=== PATIENT | female | born 2000 | race Caucasian/White ===

== ENCOUNTER 2022-11-23 18:17 | Emergency (ER) | payer BC, SELFPAY ==
--- NOTE | ~2022-11-23 | CT_ITS ---
EXAMINATION: CTA chest PE protocol DATE: 11/23/2022 22:29 INDICATION: CP, SOB, elevated dimer TECHNIQUE: Computed tomography angiography (CTA) of the chest was performed with 100 mL Omnipaque-350 intravenous contrast timed to evaluate the pulmonary arteries. Coronal maximum intensity projection 3D-reconstructions were created by the technologist. The dose-length product (DLP) was 133.91 mGy-cm. Automated exposure control and iterative reconstruction technique were employed. COMPARISON: None. FINDINGS: Lung parenchyma and airways: Clear. Pleura: Unremarkable. Thoracic inlet, axillae and chest wall: Unremarkable. Thoracic aorta: Normal. Mediastinum: Normal. Heart and pericardium: Normal. Coronary artery calcifications: . Upper abdomen: No significant finding. Bones: No acute osseous finding. Pulmonary arteries: Study quality: Mildly limited by quantum mottle and motion, particularly in the l eft lower lobe, overall diagnostic. No pulmonary emboli detected. IMPRESSION: Mildly motion limited examination, particularly in the left lower lobe, without definite CT evidence of acute pulmonary embolus. No acute process detected in the chest. Reviewed, dictated and finalized at location [facility]
--- NOTE | ~2022-11-23 | XR_ITS ---
EXAMINATION: XR chest 2V Exam Date/Time: 11/23/2022 19:00 PIN INSERTER REGULATOR HISTORY: generalized chest pain off and on for 1 week Comparison: None available. RESULT: Lines, tubes, and devices: None. Lungs and pleura: Clear. Cardiomediastinal silhouette: Normal. Other: No acute osseous or upper abdominal finding. IMPRESSION: No acute cardiopulmonary process. Reviewed, dictated and finalized at location K. INSERTER REGULATOR
[2022-11-23 18:41] VITALS: BP 142/95; PULSE 117; RESP 18; TEMP 37.1; O2SAT 100
--- NOTE | 2022-11-23 18:44 | ECG_ITS ---
Measurements Intervals [place] Rate: 78 P: 76 MD: 127 QRS: 63 QRSD: 73 T: 41 QT: 343 QTc: 391 Interpretive Statements SINUS RHYTHM WITH SINUS ARRHYTHMIA POSSIBLE LEFT ATRIAL ENLARGEMENT BASELINE ARTIFACT- I, III, AVL BORDERLINE ECG NO PREVIOUS ECG AVAILABLE FOR COMPARISON Electronically Signed On 11-24-2022 6:36:32 STAMPING PRESS OPERATOR by Pablo Lentz D.O.
[2022-11-23 20:15] VITALS: BP 134/87; PULSE 106; RESP 16; O2SAT 98
[2022-11-23 20:31] LABS: Basophils Percent Auto 0.2 % (0.2-1.2); Eosinophils Percent Auto 0.4 % (0-4.4); Hemoglobin 14.8 g/dL (12.0-15.0); Immature Granulocyte Absolute 0.03 K/mm3 (0.00-0.031); Immature Granulocyte Percent A 0.3 % (0-0.5); Lymphocytes Absolute Auto 1.76 K/mm3 (0.9-3.2); Lymphocytes Percent Auto 16.7 % (18.3-44.2); Mean Corpuscular HGB Conc 33.6 g/dl (32-36); Mean Corpuscular Hemoglobin 28.8 pg (26-34); Mean Corpuscular Volume 85.8 fl (80-100); Monocytes Absolute Auto 0.5 K/mm3 (0.1-0.6); Monocytes Percent Auto 5.1 % (2.6-8.5); Neutrophils Absolute Auto 8.1 K/mm3 (1.3-6.7); Neutrophils Percent Auto 77.3 % (45.5-73.1); Platelet Count Result 299 k/mm3 (150-375); Red Blood Count 5.13 M/mm3 (4.2-5.4); Red Cell Distribution Width 12.5 % (11.5-14.5); White Blood Count 10.5 K/mm3 (4.5-10.0)
[2022-11-23 20:41] LABS: Alanine Aminotransferase 35 U/L (6-35); Albumin Level 5.4 g/dL (3.5-5.1); Alkaline Phosphatase 62 U/L (38-126); Anion Gap 12 mmol/L (8-16); Aspartate Amino Transferase 35 U/L (14-36); Bilirubin,Total 0.5 mg/dL (0.2-1.3); Blood Urea Nitrogen 13 mg/dL (7-17); Carbon Dioxide 28 mmol/L (22-30); Chloride 100 mmol/L (98-107); Estimated CRCL calculation 94 ml/min; Estimated Glomerular Filt Rate > 60; Glucose 103 mg/dL (65-110); Lipase 74 U/L (23-300); Potassium 4.1 mmol/L (3.4-5.0); Sodium 140 mmol/L (137-145)
[2022-11-23 20:45] LABS: Prothrombin Time 12.8 Seconds (11.1-14.7)
[2022-11-23 20:46] LABS: Partial Thromboplastin Time 25.2 SECONDS (22.3-36.8)
--- NOTE | 2022-11-23 20:47 | ED.CHESTPAIN ---
HPI - Chest Pain General Chief Complaint: Chest Pain <BRUCE Quintanilla Last Filed: 11/24/22 02:58> Stated Complaint: Chest congestion <BRUCE Quintanilla Last Filed: 11/24/22 02:58> Time Seen by Provider: 11/23/22 20:13 <BRUCE Quintanilla Last Filed: 11/24/22 02:58> History of Present Illness HPI narrative: Patient is a 22-year-old female with history of childhood asthma here for evaluation of chest pain over the past 3 weeks. Patient states that her symptoms began and she presented to an urgent care's facility who diagnosed her with flu. Her fevers, cough and congestion have improved but this chest pain has remained. She describes it as a midsternal chest pain that is sharp in nature, possibly worse with deep breaths. Also notes some pain under her bilateral rib cages. She has taken ibuprofen without relief of her symptoms. No leg swelling, history of oral contraceptive use. <BRUCE Quintanilla Last Filed: 11/24/22 02:58> Related Data Allergies/Adverse Reactions: Allergies Allergy/AdvReac Type Severity Reaction Status Date / Time No Known Allergies Allergy Verified 11/23/22 20:05 <Maxine Gay PA-C - Last Filed: 11/24/22 02:58> Review of Systems Review of Systems: Gen.: Denies fevers or chills Eyes: Denies eye pain or visual change ENT: Denies congestion Respiratory: Denies shortness of breath or cough CV: Reports chest pain GI: Denies abdominal pain nausea, emesis or diarrhea denies burning, urgency, frequency or hematuria Musculoskeletal: Denies back pain or muscle pain Neuro: Denies numbness, tingling, weakness or focal weakness Skin: Denies rash Except as documented, all other systems reviewed and negative <BRUCE Quintanilla Last Filed: 11/24/22 02:58> Exam Narrative: APPEARANCE: Well appearing, no pain in distress, well-nourished. Head: Normocephalic and atraumatic. EYES: PERRLA/EOMI, conjunctivae clear NOSE: No nasal drainage EARS: External ear normal in appearance THROAT: Oropharynx is clear. Mucous membranes are moist. NECK: Supple. No adenopathy, no masses. RESPIRATORY: Airway patent, respirations nonlabored. Clear to auscultation bilaterally, no rales, rhonchi, wheezing. CARDIOVASCULAR: Regular rate and rhythm without murmurs, rubs, or gallops. ABDOMINAL: Normoactive bowel sounds. Soft, nontender, nondistended. No rebound tenderness or guarding. MUSCULOSKELETAL: No tenderness to palpation along the thorax. Extremities are warm and well-perfused. Moves all extremities well. No edema. NEURO: Normal speech. No focal neurologic deficits. SKIN: Skin is warm and dry. No rashes. PSYCHIATRIC: Normal affect/mood.. <Maxine Gay PA-C - Last Filed: 11/24/22 02:58> Course MAINTENANCE OF WAY SUPERINTENDENT/PA Physician Supervision This is a was performed by both a physician and an APC. I performed all aspects of the MDM as documented w/ the following additions: Sit pleasant 22-year-old female presenting ED with pleuritic chest pain. She recently had a viral illness. Differential includes pleurisy versus pulmonary embolism. CT PE was obtained which was negative for PE. Patient's vital signs and pain improved without intervention. Patient is comfortable being discharged at this time. All questions answered. Patient in agreement w/ disposition. <Cristian Lovelace MD - Last Filed: 11/25/22 03:20> Vital Signs Vital signs: Vital Signs Temperature 98.7 F 11/23/22 18:41 Pulse Rate 117 H 11/23/22 18:41 Respiratory Rate 18 11/23/22 18:41 Blood Pressure 142/95 H 11/23/22 18:41 Pulse Oximetry 100 11/23/22 18:41 Temperature 98.7 F 11/23/22 18:41 Pulse Rate 84 11/23/22 23:33 Respiratory Rate 18 11/23/22 23:33 Blood Pressure 132/86 11/23/22 23:33 Pulse Oximetry 97 11/23/22 23:33 Oxygen Delivery Room Air 11/23/22 20:11 <Maxine Gay PA-C - Last Filed: 11/24/22 02:58>
[2022-11-23 20:53] LABS: Troponin I < 0.012 ng/mL (0.000-0.034)
[2022-11-23 23:33] VITALS: BP 132/86; PULSE 84; RESP 18; O2SAT 97
== END 2022-11-23 23:34 | disposition home or self-care (01) ==
PROVIDERS: Emergency Medicine; Emergency Provider Physician Assistant
DX: R07.2 Precordial pain (principal); R94.31 Abnormal electrocardiogram [ECG] [EKG]
CPT/HCPCS: 36415; 71046; 71275; 80053; 81025; 83690; 84484; 85025; 85380; 85610; 85730; 93005; 99284; Q9967